=== PATIENT | female | born 2000 | race Caucasian/White ===

== ENCOUNTER 2025-03-20 19:07 | Emergency (ER) | payer OTHER, SELFPAY ==
[2025-03-20] VITALS (30 sets, daily range): BP systolic 119–148; BP diastolic 73–117
[2025-03-20 19:37] LABS: Hematocrit 39.2 % (37.0-47.0); Hemoglobin 13.7 g/dL (12.0-16.0); Mean Corp Hgb Conc. 34.9 g/dL (33.0-37.0); Mean Corpuscular Volume 84.8 fL (81.0-99.0); Nucleated Red Blood Cells % 0 %; Platelet Count 235 10^3/uL (130-400); Red Cell Dist. Width 12.9 % (11.5-14.5)
[2025-03-20] MEDS: MORPHINE SULFATE 4 MG IV ×2 (19:45→21:49)
[2025-03-20] MEDS: ZOFRAN 4 MG IV (19:45)
[2025-03-20 19:54] LABS: ALT (SGPT) 14 U/L (0-35); AST (SGOT) 20 U/L (14-36); Albumin 4.8 g/dl (3.5-5.0); Alkaline Phosphatase 73 U/L (38-126); Blood Urea Nitrogen 10 mg/dl (7-17); Calcium 9.9 mg/dl (8.4-10.2); Carbon Dioxide 24 mmol/L (22-30); Chloride 105 mmol/L (98-107); Estimated Creatinine Clearance 114 ml/min; Glucose 103 mg/dl (70-99); Potassium 4.0 mmol/L (3.5-5.1); Sodium 137 mmol/L (135-145); Total Protein 7.3 g/dl (6.3-8.2); eGFR > 60.00
[2025-03-20 21:12] LABS: HCG, Serum Qualitative Screen Negative
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
[2025-03-20] MEDS: NORCO 5/325 2 TABLET PO (22:25)
== END 2025-03-20 22:42 | disposition home or self-care (01) ==
LOC: EMR 19:07
PROVIDERS: Emergency Medicine; EMERGENCY PHYSICIAN Emergency Medicine
DX: S82.392A Other fracture of lower end of left tibia, initial encounter for closed fracture (principal); S82.832A Other fracture of upper and lower end of left fibula, initial encounter for closed fracture; V00.841A Fall from standing electric scooter, initial encounter; Y92.831 Amusement park as the place of occurrence of the external cause; Z88.0 Allergy status to penicillin; Z88.2 Allergy status to sulfonamides
CPT/HCPCS: 99284; 96374; 96375; 96376; 27752; 73610; 80053; 84703; 85025

== ENCOUNTER → 2025-03-25 16:00 | Outpatient (REF) | payer OTHER, SELFPAY | LOC: RAD 16:00 | PROVIDERS: ATTENDING PHYSICIAN Orthopaedic Surgery Hand Surgery | DX: S82.872A Displaced pilon fracture of left tibia, initial encounter for closed fracture (principal) | CPT/HCPCS: 73700 ==

== ENCOUNTER 2025-03-26 05:51 | Day surgery (SDC) | payer OTHER, SELFPAY ==
[2025-03-26] VITALS (10 sets, daily range): BP systolic 133–150; BP diastolic 80–102; BMI 18.8
[2025-03-26] MEDS: TYLENOL 1000 MG PO (06:20)
[2025-03-26] MEDS: NORMOSOL-R/PLASMALYTE-A 1000 IV (06:20)
[2025-03-26] MEDS: MOBIC 15 MG PO (06:20)
[2025-03-26] MEDS: DILAUDID 0.25 MG IV (10:24)
[2025-03-26] MEDS: DILAUDID 0.5 MG IV ×2 (10:33→10:49)
== END 2025-03-26 11:56 | disposition home or self-care (01) ==
LOC: SDS 05:51
PROVIDERS: ATTENDING PHYSICIAN Orthopaedic Surgery Hand Surgery
DX: S82.872A Displaced pilon fracture of left tibia, initial encounter for closed fracture (principal); S82.832A Other fracture of upper and lower end of left fibula, initial encounter for closed fracture; X58.XXXA Exposure to other specified factors, initial encounter
CPT/HCPCS: 27828; C1713; 73590; 73600; 76000

== ENCOUNTER → 2025-04-25 08:04 | Outpatient (REF) | payer OTHER, SELFPAY | LOC: WOUND 08:04 | PROVIDERS: ATTENDING PHYSICIAN Surgery | DX: T81.31XA Disruption of external operation (surgical) wound, not elsewhere classified, initial encounter (principal); L97.329 Non-pressure chronic ulcer of left ankle with unspecified severity; Y83.8 Other surgical procedures as the cause of abnormal reaction of the patient, or of later complication, without mention of misadventure at the time of the procedure; F17.200 Nicotine dependence, unspecified, uncomplicated | CPT/HCPCS: 99203; 99406 ==

== ENCOUNTER → 2025-05-13 14:57 | Outpatient (REF) | payer OTHER, SELFPAY | LOC: WOUND 14:57 | PROVIDERS: ATTENDING PHYSICIAN Surgery | DX: T81.31XA Disruption of external operation (surgical) wound, not elsewhere classified, initial encounter (principal); Y83.8 Other surgical procedures as the cause of abnormal reaction of the patient, or of later complication, without mention of misadventure at the time of the procedure; L97.329 Non-pressure chronic ulcer of left ankle with unspecified severity; Z72.0 Tobacco use | CPT/HCPCS: 11042 ==

== ENCOUNTER 2025-05-16 11:00 | Inpatient (IN) | payer OTHER, SELFPAY ==
[2025-05-16 04:03] VITALS: BP 113/63
[2025-05-16 04:34] VITALS: BMI 19.9
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
[2025-05-16] MEDS: ZOFRAN 4 MG IV (06:49)
[2025-05-16 07:10] LABS: Hematocrit 37.4 % (37.0-47.0); Hemoglobin 12.9 g/dL (12.0-16.0); Mean Corp Hgb Conc. 34.5 g/dL (33.0-37.0); Mean Corpuscular Volume 85.0 fL (81.0-99.0); Nucleated Red Blood Cells % 0 %; Platelet Count 276 10^3/uL (130-400); Red Cell Dist. Width 12.7 % (11.5-14.5)
[2025-05-16 07:24] LABS: ALT (SGPT) 13 U/L (0-35); AST (SGOT) 18 U/L (14-36); Albumin 4.3 g/dl (3.5-5.0); Alkaline Phosphatase 88 U/L (38-126); Blood Urea Nitrogen 6 mg/dl (7-17); Calcium 9.3 mg/dl (8.4-10.2); Carbon Dioxide 26 mmol/L (22-30); Chloride 106 mmol/L (98-107); Estimated Creatinine Clearance 111 ml/min; Glucose 104 mg/dl (70-99); Potassium 3.9 mmol/L (3.5-5.1); Sodium 140 mmol/L (135-145); Total Protein 6.9 g/dl (6.3-8.2); eGFR > 60.00
[2025-05-16 07:28] LABS: C-Reactive Protein < 5.00 mg/L (0.0-10.00)
[2025-05-16 07:33] VITALS: BP 118/85
[2025-05-16] MEDS: TORADOL 15 MG IV (07:38)
[2025-05-16 08:25] LABS: HCG, Serum Qualitative Screen Negative
[2025-05-16 09:19] VITALS: BP 113/61
[2025-05-16] MEDS: NSS 500 IV (09:48)
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
[2025-05-16] MEDS: 0.45%NACL 1000 IV (11:37)
[2025-05-16 14:15] VITALS: BP 123/66
[2025-05-16 14:16] VITALS: BMI 19.1
--- NOTE | 2025-05-16 16:00 | PTCARENOTE ---
Dr. Pozo to bedside. Patient in disagreement with surgical treatment plan. Dr. Pozo discussed risks of patient leaving/suggestions if she didn't want surgical operation here.
Patient leaving AMA, recommended to go to [facility] by Dr. Pozo.
--- NOTE | 2025-05-16 17:31 | W.PN.UPDATE ---
Update Note
Progress Note Update
Addendum
I was asked by Dr. Pozo/ Dr Duffy to see the patient as she was leaving AGAINST MEDICAL ADVICE. Report: Patient declined podiatry recommendation to have surgery. Saw the patient on the floor, she was in wheelchair about to leave the floor.
Patient reported that recovery expectations were different than what she thought initially after discussing process with home planning consultant salesperson physician and that was why she wanted to leave ( she also mentioned she had commitments that she had to attend to at
[place] [facility] Patient was made aware of potential complications including losing a limb/sepsis/blood clots. Patient reported that she was willing to come back if she develops pain or fever or other adverse medical health issues, her main goal
now was to follow with [facility] where more resources available including plastic surgery. I offered to stay and we would try to talk to [facility] for transfer but she declined to stay.
Patient was fully oriented, not in distress or pain, lucid. Her girlfriend was with her and both wanted to leave.
D/w Nursing staff. Updated Dr. Pozo/ Dr Duffy.
End
--- NOTE | 2025-05-16 17:52 | W.PN.UPDATE ---
Update Note
Progress Note Update
Patient seen at beside prior to debridement procedure.
Patient denying consent for debridement with VAC application. Discussed risks of loss of limb and loss of life.
Patient states she will not consent to 'Wound VAC application' and states 'now is not a good time to be in the hospital for her' despite recommending exicsional debridement, washout, possible hardware removal and VAC application.
Patient requested to leave AGAINST MEDICAL ADVISE despite risk of loss of limb, plan to discharge patient from care as she is unable to maintain reasonable compliance and will not consent to care
--- NOTE | 2025-05-17 09:13 | CM ---
Patient signed out AMA on 05/16/25.
== END 2025-05-16 17:17 | disposition left against medical advice (07) | DRG 561 ==
LOC: 4 EAST ACU 11:00
PROVIDERS: Physician Assistant; ADMITTING PHYSICIAN Hospitalist; CONSULT PHYSICIAN Internal Medicine Infectious Disease; EMERGENCY PHYSICIAN Student in an Organized Health Care Education/Training Program; OTHER PHYSICIAN Student in an Organized Health Care Education/Training Program
DX: T84.623A Infection and inflammatory reaction due to internal fixation device of left tibia, initial encounter (principal); F17.210 Nicotine dependence, cigarettes, uncomplicated; S82.872A Displaced pilon fracture of left tibia, initial encounter for closed fracture; V00.141A Fall from scooter (nonmotorized), initial encounter; F41.9 Anxiety disorder, unspecified; S82.832A Other fracture of upper and lower end of left fibula, initial encounter for closed fracture; Z71.6 Tobacco abuse counseling; Y79.3 Surgical instruments, materials and orthopedic devices (including sutures) associated with adverse incidents
CPT/HCPCS: 73610; 73700; 80053; 84703; 85025; 85652; 86140; 87070; 87075; 87076; 87077; 87186; 87205; 96374; 96375; 99285